=== PATIENT | female | born 1950 | race Caucasian/White ===

== ENCOUNTER 2023-04-25 09:37 | Emergency (ER) | payer BC, MEDICARE ==
[2023-04-25 10:10] LABS: APPEARANCE,URINE CLOUDY (CLEAR); BILIRUBIN,URINE NEGATIVE (NEGATIVE); COLOR,URINE YELLOW (YELLOW); GLUCOSE,URINE NEGATIVE (NEGATIVE); KETONES,URINE NEGATIVE (NEGATIVE); LEUKOCYTE ESTERASE,URINE SMALL (NEGATIVE); NITRITE,URINE NEGATIVE (NEGATIVE); OCCULT BLOOD,URINE MODERATE (NEGATIVE); PH,URINE 5.5 (5.0-8.0); PROTEIN,URINE NEGATIVE (NEGATIVE); UROBILINOGEN,URINE 0.2 EU/dL (0.2-1.0)
[2023-04-25 10:11] LABS: AMORPHOUS SEDIMENT,URINE NOT SEEN; BACTERIA,URINE MANY; EPITHELIAL CELLS,URINE MANY; MUCUS,URINE NOT SEEN
[2023-04-25 10:59] LABS: BASOPHILS ABSOLUTE AUTO 0.05 K/uL (0.00-0.10); BASOPHILS PERCENT AUTO 0.7 % (0.1-1.3); EOSINOPHILS ABSOLUTE AUTO 0.06 K/uL (0.00-0.40); EOSINOPHILS PERCENT AUTO 0.9 % (0.0-5.4); HEMOGLOBIN 12.5 g/dL (11.2-15.5); IMMATURE GRAN ABSOLUTE AUTO 0.05 K/uL (0.00-0.23); IMMATURE GRAN PERCENT AUTO 0.7 % (0.0-0.7); LYMPHOCYTES ABSOLUTE AUTO 1.19 K/uL (0.8-3.3); LYMPHOCYTES PERCENT AUTO 17.4 % (11.4-47.7); MEAN CORPUSCULAR HEMOGLOBIN 32.2 pg (31.6-35.5); MEAN CORPUSCULAR HGB CONC 34.7 g/dL (31.6-35.5); MEAN CORPUSCULAR VOLUME 92.8 fL (81.4-99.0); MONOCYTES ABSOLUTE AUTO 0.38 K/uL (0.20-0.90); MONOCYTES PERCENT AUTO 5.6 % (3.3-12.6); NEUTROPHILS ABSOLUTE AUTO 5.11 K/uL (1.0-7.6); NEUTROPHILS PERCENT AUTO 74.7 % (40.0-78.1); PLATELET COUNT,PLT 256 K/uL (130-375); RED BLOOD CELL COUNT 3.88 M/uL (3.77-5.24); WHITE BLOOD CELL COUNT,WBC 6.8 K/uL (3.2-11.0)
[2023-04-25] MEDS ORDERED: Ketorolac 30 MG/ML SDV IM ONE (11:10)
[2023-04-25 11:14] LABS: CALCIUM 9.6 mg/dL (8.5-10.1); CREATININE 0.9 mg/dL (0.6-1.0); EST CRCL DRUG DOSING (CG) 52.34 mL/min; POTASSIUM,K 5.1 mmol/L (3.6-5.2)
[2023-04-25 11:16] LABS: ANION GAP 14.1 mmol/L (5.0-14.0)
== END 2023-04-25 12:50 | disposition home or self-care (01) ==
LOC: JP.ED 09:37
DX: N13.2 Hydronephrosis with renal and ureteral calculous obstruction (principal); R31.29 Other microscopic hematuria; R82.71 Bacteriuria
CPT/HCPCS: 36415; 74176; 80048; 81001; 85025; 87086; 87088; 96372; 99284; J1885